=== PATIENT | female | born 1985 | race African-American/Black ===

== ENCOUNTER 2020-09-21 09:07 | Emergency (ER) | payer OTHER ==
[2020-09-21 09:19] VITALS: BP 128/84; PULSE 70; TEMP 98.5; BMI 27.4
[2020-09-21] MEDS ORDERED: KETOROLAC TROMETHAMINE 30 MG/1 ML VIAL IM ONE (10:00)
[2020-09-21] MEDS ORDERED: diazePAM 5 MG TABLET PO ONE (10:00)
[2020-09-21] MEDS ORDERED: predniSONE 20 MG TABLET (UD) PO SCH (10:00)
[2020-09-21] MEDS ORDERED: predniSONE 20 MG TABLET (UD) ONE (10:15)
[2020-09-21] MEDS ORDERED: KETOROLAC TROMETHAMINE 30 MG/1 ML VIAL ONE (10:16)
[2020-09-21] MEDS ORDERED: diazePAM 5 MG TABLET ONE (10:16)
[2020-09-21] MEDS ORDERED: LIDOCAINE 5% TOPICAL PATCH ONE (10:18)
[2020-09-21] MEDS ORDERED: LIDOCAINE 5% TOPICAL PATCH TP ONE (10:18)
[2020-09-21] MEDS ORDERED: LIDOCAINE PATCH REMOVAL MC SCH (22:00)
== END 2020-09-21 12:28 | disposition home or self-care (01) ==
LOC: JERFT 09:07 → JER 09:07 → JERFT 12:28
PROC: 3E0233Z Introduction of Anti-inflammatory into Muscle, Percutaneous Approach (ICD-10-PCS; principal; 2020-09-21)
DX: M50.13 Cervical disc disorder with radiculopathy, cervicothoracic region (principal); M54.14 Radiculopathy, thoracic region
CPT/HCPCS: 99284-25

== ENCOUNTER 2020-11-07 16:59 | Emergency (ER) | payer OTHER ==
[2020-11-07 17:18] VITALS: BP 114/64; PULSE 91; TEMP 99.9; BMI 26.6
== END 2020-11-07 18:04 | disposition home or self-care (01) ==
LOC: JER 16:59
DX: Z11.52 Encounter for screening for COVID-19 (principal)
CPT/HCPCS: 99283-25; C9803; U0003; U0005

== ENCOUNTER 2020-11-15 02:14 | Emergency (ER) | payer OTHER ==
[2020-11-15 03:02] VITALS: BP 101/72; PULSE 85; TEMP 98.2; BMI 26.7
[2020-11-15] MEDS ORDERED: ACETAMINOPHEN 500 MG TABLET (FP) PO ONE (04:40)
[2020-11-15] MEDS ORDERED: ACETAMINOPHEN 325 MG TABLET (FP) ONE (04:55)
[2020-11-15] MEDS ORDERED: DIPHTH,PERTUSS(ACELL),TET 0.5 ML DISP.SYRIN IM ONE ×2 (06:38→06:41)
== END 2020-11-15 06:57 | disposition home or self-care (01) ==
LOC: JER 02:14
PROC: 3E0234Z Introduction of Serum, Toxoid and Vaccine into Muscle, Percutaneous Approach (ICD-10-PCS; principal; 2020-11-15)
DX: S01.01XA Laceration without foreign body of scalp, initial encounter (principal); S09.90XA Unspecified injury of head, initial encounter; W01.0XXA Fall on same level from slipping, tripping and stumbling without subsequent striking against object, initial encounter; Y92.511 Restaurant or cafe as the place of occurrence of the external cause
CPT/HCPCS: 70450-TC; 72125-TC; 90471; 90715; 99284-25

== ENCOUNTER 2020-11-26 10:37 | Emergency (ER) | payer OTHER ==
[2020-11-26 10:43] VITALS: BP 99/65; PULSE 71; TEMP 98.5; BMI 26.6
== END 2020-11-26 11:10 | disposition home or self-care (01) ==
LOC: JERFT 10:37
DX: Z48.02 Encounter for removal of sutures (principal)
CPT/HCPCS: 99281-25

== ENCOUNTER 2021-02-19 10:05 | Emergency (ER) | payer OTHER ==
[2021-02-19 10:28] VITALS: BMI 28.3
[2021-02-19] MEDS ORDERED: DEXAMETHASONE SOD PHOSPHATE 10 MG/1 ML VIAL IVPUSH ONE (10:42)
[2021-02-19] MEDS ORDERED: SODIUM CHLORIDE 0.9% 500 ML INFUS.BAG IV ONE (11:03)
[2021-02-19] MEDS ORDERED: ALBUTEROL SO4 2.5/IPRATROPIUM 0.5 INH SOL 3 ML VIAL.NEB. NEB ONE (11:04)
[2021-02-19] MEDS ORDERED: DEXAMETHASONE SOD PHOSPHATE 10 MG/1 ML VIAL ONE (11:04)
[2021-02-19 11:13] LABS: BASO % 0.2 % (0-2.0); EOS % 0.6 % (0-4.5); HEMATOCRIT 39.4 % (32.4-45.2); HEMOGLOBIN 13.1 GM/dL (10.7-15.3); LYMPH % 9.9 % (8-40); MCH 31.7 pg (25.7-33.7); MCHC 33.1 g/dl (32.0-36.0); MEAN CELL VOLUME 95.8 fl (80-96); MONO % 6.8 % (3.8-10.2); NEUT % 82.5 % (42.8-82.8); PLATELET COUNT 244 10^3/uL (134-434); RBC 4.11 M/mm3 (3.60-5.2); RDW 12.8 % (11.6-15.6); WHITE BLOOD COUNT 12.1 K/mm3 (4.0-10.0)
[2021-02-19 11:19] LABS: INR 1.03 (0.83-1.09)
[2021-02-19 11:21] LABS: ACTIVATED PTT 37.1 SECONDS (25.2-36.5)
[2021-02-19] MEDS: ALBUTEROL SO4 2.5/IPRATROPIUM 0.5 INH SOL 3 ML VIAL.NEB. NEB SCH ×4 (11:24→12:40)
[2021-02-19 11:51] LABS: ALBUMIN 3.8 g/dl (3.4-5.0); BILIRUBIN,TOTAL 0.4 mg/dL (0.2-1); CALCIUM 9.3 mg/dL (8.5-10.1); CREATININE 0.7 mg/dL (0.55-1.3); TOT PROT 7.9 g/dl (6.4-8.2)
[2021-02-19] MEDS ORDERED: ALBUTEROL SO4 0.083% IH SOL 2.5 MG/3 ML VIAL.NEB. NEB ONE (14:12)
[2021-02-19] MEDS ORDERED: ALBUTEROL SO4 0.5 % INH SOLN 2.5 MG/0.5 ML VIAL.NEB. NEB ONE (14:19)
[2021-02-19 16:03] VITALS: BP 133/76; PULSE 116; TEMP 98.4
== END 2021-02-19 16:10 | disposition home or self-care (01) ==
LOC: JER 10:05
PROC: 3E0F7GC Introduction of Other Therapeutic Substance into Respiratory Tract, Via Natural or Artificial Opening (ICD-10-PCS; principal; 2021-02-19)
PROC: 3E033GC Introduction of Other Therapeutic Substance into Peripheral Vein, Percutaneous Approach (ICD-10-PCS; 2021-02-19)
DX: R05.1 Acute cough (principal); J45.21 Mild intermittent asthma with (acute) exacerbation; Z11.52 Encounter for screening for COVID-19
CPT/HCPCS: 36415; 71046-TC-FY; 80053; 85025; 85610; 85730; 87804; 93005; 93010; 99285-25; C9803; J1100; U0003; U0005

== ENCOUNTER 2021-08-23 12:23 | Inpatient (IN) | payer OTHER ==
[2021-08-23 15:20] LABS: PH,URINE 7.5 (5.0-8.0); URINE APPEARANCE TURBID; URINE BILIRUBIN NEGATIVE (NEGATIVE); URINE COLOR YELLOW; URINE GLUCOSE (UA) NEGATIVE (NEGATIVE); URINE KETONE NEGATIVE (NEGATIVE); URINE LEUK ESTERASE NEGATIVE (NEGATIVE); URINE NITRITE NEGATIVE (NEGATIVE); URINE PROTEIN NEGATIVE (NEGATIVE); URINE UROBILINOGEN 0.2 mg/dL (0.2-1.0)
[2021-08-23 20:14] LABS: BASO % 0.6 % (0-2.0); EOS % 2.3 % (0-4.5); HEMATOCRIT 37.3 % (32.4-45.2); HEMOGLOBIN 12.5 GM/dL (10.7-15.3); LYMPH % 27.4 % (8-40); MCH 32.7 pg (25.7-33.7); MCHC 33.5 g/dl (32.0-36.0); MEAN CELL VOLUME 97.7 fl (80-96); MEAN PLT VOLUME 9.8 fl (7.5-11.1); NEUT % 61.7 % (42.8-82.8); PLATELET COUNT 255 10^3/uL (134-434); RBC 3.81 M/mm3 (3.60-5.2); RDW 13.3 % (11.6-15.6); WHITE BLOOD COUNT 8.5 K/mm3 (4.0-10.0)
[2021-08-23 20:33] LABS: INR 0.93 (0.83-1.09); PROTHROMBIN TIME (PATIENT) 10.7 SEC (9.7-13.0)
[2021-08-23 20:35] LABS: ACTIVATED PTT 36.5 SECONDS (25.2-36.5)
[2021-08-23 20:35] LABS: BLOOD UREA NITROGEN 9.6 mg/dL (7-18)
[2021-08-23 20:37] LABS: ALBUMIN 3.6 g/dl (3.4-5.0)
[2021-08-23 20:38] LABS: CREATININE 0.6 mg/dL (0.55-1.3)
[2021-08-23 20:40] LABS: BILIRUBIN,TOTAL 0.5 mg/dL (0.2-1)
[2021-08-23] MEDS ORDERED: HEPARIN INFUSION - 25,000 UNITS/500 ML INFUS.BAG IVPB SCH (23:45)
[2021-08-23] MEDS ORDERED: HEPARIN NA (PORCINE) 5,000 UNITS/ML 1ML VIAL IVPUSH ONE (23:54)
[2021-08-24] MEDS ORDERED: HEPARIN INFUSION - 25,000 UNITS/500 ML INFUS.BAG IVPB ONE (00:16)
[2021-08-24] MEDS ORDERED: HEPARIN NA (PORCINE) 5,000 UNITS/ML 1ML VIAL ONE (00:17)
[2021-08-24] MEDS ORDERED: morphine CARPU-JECT 2 MG/1 ML DISP.SYRIN IVPUSH PRN (07:16)
[2021-08-24] MEDS ORDERED: ACETAMINOPHEN 1000 MG/100 ML BAG IVPB PRN (07:17)
[2021-08-24] MEDS ORDERED: ALBUTEROL SO4 2.5/IPRATROPIUM 0.5 INH SOL 3 ML VIAL.NEB. NEB PRN (09:56)
[2021-08-24 10:17] LABS: INR 0.96 (0.83-1.09)
[2021-08-24 10:18] LABS: ACTIVATED PTT 104.6 SECONDS (25.2-36.5)
[2021-08-24 11:34] VITALS: BMI 26.7
[2021-08-24 11:46] LABS: CHOLESTEROL 163 mg/dL (50-200)
[2021-08-24 11:47] LABS: LDL CHOLESTEROL (ONLY SJRH) 81 mg/dL (5-100)
[2021-08-24 11:48] LABS: TRIGLYCERIDES 57 mg/dL (0-150)
[2021-08-24 11:49] LABS: HDL CHOLESTEROL 85 mg/dL (40-60)
[2021-08-25 09:09] LABS: BASO % 0.7 % (0-2.0); EOS % 2.1 % (0-4.5); HEMATOCRIT 40.5 % (32.4-45.2); HEMOGLOBIN 13.4 GM/dL (10.7-15.3); LYMPH % 19.7 % (8-40); MCH 32.4 pg (25.7-33.7); MCHC 33.2 g/dl (32.0-36.0); MEAN CELL VOLUME 97.6 fl (80-96); MEAN PLT VOLUME 9.8 fl (7.5-11.1); MONO % 7.3 % (3.8-10.2); NEUT % 70.2 % (42.8-82.8); PLATELET COUNT 268 10^3/uL (134-434); RBC 4.15 M/mm3 (3.60-5.2); RDW 13.2 % (11.6-15.6); WHITE BLOOD COUNT 5.9 K/mm3 (4.0-10.0)
[2021-08-25 09:29] LABS: CALCIUM 9.4 mg/dL (8.5-10.1)
[2021-08-25 09:30] LABS: BLOOD UREA NITROGEN 8.2 mg/dL (7-18); MAGNESIUM 2.1 mg/dL (1.8-2.4)
[2021-08-25 09:33] LABS: CREATININE 0.7 mg/dL (0.55-1.3)
[2021-08-25 09:34] LABS: PHOSPHOROUS 3.4 mg/dL (2.5-4.9)
[2021-08-25] MEDS ORDERED: ACETAMINOPHEN 325 MG TABLET (FP) PO PRN (19:10)
[2021-08-26] MEDS ORDERED: ENOXAPARIN NA (PORCINE) 40 MG/0.4 ML DISP.SYRIN SQ SCH (10:00)
[2021-08-26 13:53] LABS: BASO % 0.5 % (0-2.0); EOS % 1.3 % (0-4.5); HEMATOCRIT 43.6 % (32.4-45.2); HEMOGLOBIN 14.5 GM/dL (10.7-15.3); LYMPH % 17.5 % (8-40); MCH 32.5 pg (25.7-33.7); MCHC 33.3 g/dl (32.0-36.0); MEAN CELL VOLUME 97.5 fl (80-96); MEAN PLT VOLUME 9.8 fl (7.5-11.1); MONO % 8.9 % (3.8-10.2); NEUT % 71.8 % (42.8-82.8); PLATELET COUNT 309 10^3/uL (134-434); RBC 4.47 M/mm3 (3.60-5.2); RDW 13.1 % (11.6-15.6); WHITE BLOOD COUNT 8.8 K/mm3 (4.0-10.0)
[2021-08-26 14:00] LABS: INR 1.08 (0.83-1.09); PROTHROMBIN TIME (PATIENT) 12.4 SEC (9.7-13.0)
[2021-08-26 14:20] LABS: CALCIUM 10.1 mg/dL (8.5-10.1)
[2021-08-26 14:21] LABS: ALBUMIN 4.1 g/dl (3.4-5.0); MAGNESIUM 2.1 mg/dL (1.8-2.4)
[2021-08-26 14:24] LABS: CREATININE 0.7 mg/dL (0.55-1.3)
[2021-08-26 14:26] LABS: BILIRUBIN,TOTAL 0.2 mg/dL (0.2-1); TOT PROT 7.7 g/dl (6.4-8.2)
[2021-08-26 15:15] VITALS: BP 119/72; PULSE 70; TEMP 98.8
[2021-08-26] MEDS ORDERED: ALBUTEROL SO4 HFA INHALER IH PRN (15:45)
== END 2021-08-26 16:00 | disposition home or self-care (01) | DRG 197 ==
LOC: JER 12:23 → JERBED 18:09 → J6S 08-24 10:40
PROVIDERS: ADMIT Hospitalist; ATTEND Nurse Practitioner Acute Care
DX: I70.201 Unspecified atherosclerosis of native arteries of extremities, right leg (principal); F12.90 Cannabis use, unspecified, uncomplicated; M41.80 Other forms of scoliosis, site unspecified; M51.26 Other intervertebral disc displacement, lumbar region; M50.20 Other cervical disc displacement, unspecified cervical region; E11.9 Type 2 diabetes mellitus without complications; J45.909 Unspecified asthma, uncomplicated; M54.03 Panniculitis affecting regions of neck and back, cervicothoracic region; R20.2 Paresthesia of skin; R25.2 Cramp and spasm; D68.59 Other primary thrombophilia; Z97.5 Presence of (intrauterine) contraceptive device
CPT/HCPCS: 36415; 72148-TC; 74176-TC; 75635-TC; 76830-TC; 80048; 80053; 80061; 81003; 83036; 83735; 84100; 84443; 84703; 85025; 85610; 85730; 86850; 86900; 86901; 87077; 87086; 93005; 93010; 97116-GP; 99285-25; C9803-CS; J1644; U0003; U0005

== ENCOUNTER 2023-06-22 16:06 | Emergency (ER) | payer OTHER ==
[2023-06-22 16:13] VITALS: BP 125/79; PULSE 83; RESP 20; TEMP 98.9; BMI 28.9
[2023-06-22] MEDS ORDERED: FAMOTIDINE 20 MG TABLET ONE (18:19)
[2023-06-22] MEDS ORDERED: ACETAMINOPHEN INJECTION 100 ML IVPB ONE (18:20)
[2023-06-22] MEDS ORDERED: KETOROLAC TROMETHAMINE 30 MG/1 ML VIAL ONE (18:21)
[2023-06-22] MEDS ORDERED: MAG HYDROX/AL HYDROX/SIMETH 30 ML UNIT-DOSE CUP ONE (18:21)
[2023-06-22 18:47] LABS: BASO % 0.5 % (0-2.0); EOS % 1.3 % (0-4.5); HEMOGLOBIN 13.7 GM/dL (10.7-15.3); LYMPH % 17.8 % (8-40); MCH 31.8 pg (25.7-33.7); MCHC 33.5 g/dl (32.0-36.0); MEAN CELL VOLUME 94.9 fl (80-96); MEAN PLT VOLUME 9.3 fl (7.5-11.1); MONO % 10.8 % (3.8-10.2); NEUT % 69.6 % (42.8-82.8); PLATELET COUNT 256 10^3/uL (134-434); RBC 4.32 M/mm3 (3.60-5.2); RDW 13.3 % (11.6-15.6); WHITE BLOOD COUNT 8.5 K/mm3 (4.0-10.0)
[2023-06-22] MEDS: MAG HYDROX/AL HYDROX/SIMETH -MYLANTA- ORAL SUSPENSION PO ONE (18:59)
[2023-06-22] MEDS: ACETAMINOPHEN 1000 MG/100 ML BAG IVPB ONE (18:59)
[2023-06-22] MEDS: KETOROLAC TROMETHAMINE 30 MG/1 ML VIAL IVPUSH ONE (19:00)
[2023-06-22] MEDS: FAMOTIDINE 20 MG TABLET PO ONE (19:00)
[2023-06-22 19:02] LABS: POTASSIUM 3.7 mmol/L (3.5-5.1)
[2023-06-22 19:05] LABS: ALBUMIN 3.8 g/dl (3.4-5.0); CALCIUM 9.7 mg/dL (8.5-10.1)
[2023-06-22 19:06] LABS: BLOOD UREA NITROGEN 7.8 mg/dL (7-18)
[2023-06-22 19:08] LABS: CREATININE 0.7 mg/dL (0.55-1.3)
[2023-06-22 19:10] LABS: BILIRUBIN,TOTAL 0.2 mg/dL (0.2-1); TOT PROT 7.8 g/dl (6.4-8.2)
== END 2023-06-22 19:45 | disposition home or self-care (01) ==
LOC: JER 16:06
PROC: 3E030NZ Introduction of Analgesics, Hypnotics, Sedatives into Peripheral Vein, Open Approach (ICD-10-PCS; principal; 2023-06-22)
PROC: 3E0303Z Introduction of Anti-inflammatory into Peripheral Vein, Open Approach (ICD-10-PCS; 2023-06-22)
DX: R07.2 Precordial pain (principal); R07.81 Pleurodynia; R05.9 Cough, unspecified; K29.00 Acute gastritis without bleeding; Z20.822 Contact with and (suspected) exposure to COVID-19
CPT/HCPCS: 0241U-QW; 36415; 71046-TC-FY; 80053; 83690; 84484; 84703; 85025; 93005; 93010; 96374; 96375; 99285-25; J0131

== ENCOUNTER 2024-08-31 10:37 | Emergency (ER) | payer OTHER ==
[2024-08-31 10:54] VITALS: BP 90/60; PULSE 81; RESP 20; TEMP 98.7
[2024-08-31 15:25] LABS: HCV DIAGNOSTIC IN-HOUSE W/RFLX NON-REACTIVE (NONREACTIVE); HIV INTERPRETATION NEGATIVE (NEGATIVE)
== END 2024-08-31 11:58 | disposition home or self-care (01) ==
LOC: JERFT 10:37
DX: M77.8 Other enthesopathies, not elsewhere classified (principal); M25.532 Pain in left wrist
CPT/HCPCS: 36415; 73110-TC-LT-FY; 86803; 87389; 99284-25